=== PATIENT | female | born 1990 | race Caucasian/White ===

== ENCOUNTER 2016-10-22 18:33 | Emergency (ER) | payer OTHER, MEDICAID ==
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
[2016-10-22 18:41] VITALS: BP 170/149; PULSE 126; RESP 18; TEMP 98.1; O2SAT 99
== END 2016-10-22 20:03 | disposition home or self-care (01) ==
DX: S50.12XA Contusion of left forearm, initial encounter (principal); V89.2XXA Person injured in unspecified motor-vehicle accident, traffic, initial encounter; F19.10 Other psychoactive substance abuse, uncomplicated